=== PATIENT | female | born 1980 | race Hispanic/Latino ===

== ENCOUNTER 2025-03-18 22:25 | Emergency (ER) | payer OTHER ==
[~2025-03-18] VITALS: Ht 167.6 cm; Wt 88.5 kg
[2025-03-18 23:00] VITALS: PULSE 70; RESP 17; TEMP 98.4; O2SAT 100
== END 2025-03-19 00:26 | disposition home or self-care (01) ==
LOC: ER 03-19 00:03
DX: Z48.01 Encounter for change or removal of surgical wound dressing (principal)
CPT/HCPCS: 99282